=== PATIENT | female | born 1980 | race African-American/Black ===

== ENCOUNTER 2016-10-15 10:37 | Emergency (ER) | payer OTHER ==
--- NOTE | ~2016-10-15 | CT2 ---
[facility] A Service of [facility] & [facility] RADIOLOGY TEXT RESULTS PATIENT: PREM HUDSON LOCATION: SED : 84 UNIT #: [id number] AGE: [address]: Anthony Gonzalez MD SEX: F ORDER DR: [id number] [address] [address] [id number] E MR#: [id number] Acc #: [id number] NAME: PREM HUDSON : 1980 SEX: F STUDY DATE/TIME: 10/15/2016 12:36 UNIT: SED ROOM: STUDY DESCRIPTION: CT Abd and Pelv W Cont Attending Physician: Anthony Gonzalez M.D. Ordering Physician: Anthony Gonzalez M.D. Primary Care Physician: José Barber M.D. MEDICAL IMAGING REPORT This report is preliminary unless electronic signature is present. EXAM CT abdomen and pelvis with contrast 10/15/2016 1236 hours HISTORY 36-year-old woman with complaint of nausea, vomiting, bloody diarrhea and lightheadedness since yesterday. COMPARISON CT abdomen and pelvis 10/29/2015. TECHNIQUE Dynamic helical CT images were obtained from the lung bases with intravenous contrast only. Sagittal and coronal reconstructions were performed. Contrast was Isovue-370 100 mL IV. Total exam DLP 733 mGy-cm. This CT examination was performed with one or more of the following radiation dose reduction techniques: automatic exposure control, adjustment of mA and/or kV according to patient size, and iterative reconstruction. FINDINGS The lung bases are clear. There are no effusions. The distal esophagus is normal. The postcontrast images through the liver demonstrate 2 well-defined enhancing areas in the medial right lobe 1 seen on image 13 measuring 1.8 cm and the other just inferior and lateral to this in the posterior segment right lobe of the liver on image 17 measuring 1.9 cm. These are not apparent on the noncontrasted CT of 10/18/2005. Benign etiologies such as focal nodular hyperplasia, benign adenomas or atypical hemangiomas are favored over malignancy in a patient of this demographic with no prior malignancy. Consider confirmation of benign etiology with followup non-emergent liver MRI. The spleen, pancreas, gallbladder and bile ducts are normal. The adrenal glands are normal. The kidneys [facility]. [facility] A Service of [facility] RADIOLOGY TEXT RESULTS PATIENT: PREM HUDSON LOCATION: [facility] [place] : 84 UNIT #: [id number] AGE: [address]: Anthony Gonzalez MD SEX: F ORDER DR: enhance normally. There is no renal mass, stone or evidence of infection or obstruction. No ureteral calculi. The stomach is unopacified and somewhat contracted but appears normal. There is no small bowel distension or small bowel wall thickening. The terminal ileum is normal. The appendix is normal. The colon is nondistended. There is moderate stool in the right colon, transverse colon. There is suggested wall thickening in the mid to distal descending colon contiguously with a decompressed rectosigmoid colon. This segment of involvement is rather long, which would favor an infectious or inflammatory colitis over malignancy. CT pelvis is negative. IMPRESSION. 1. There is a fairly long segment of circumferential bowel wall thickening in the descending colon extending from the proximal to mid descending colon to the junction with the sigmoid colon. The rectosigmoid colon is decompressed. The findings favor the presence of infectious or inflammatory colitis. Malignancy is felt unlikely given the length of segmental involvement. 2. There are 2 well-defined enhancing nodules in the right lobe of the liver measuring 1.8 and 1.9 cm. These are not apparent on the noncontrasted CT of 10/29/2015. Benign etiology such as focal nodular hyperplasia, adenomas or atypical hemangioma is favored. If there are no prior postcontrast CTs available at an outside institution to confirm stability, I would suggest a followup non-emergent liver MRI to confirm the benign nature of these nodules as suspected. 3. Phleboliths in the pelvis. No renal or ureteral calculi. STAT * RESULT Dictated by... Nguyen Leahy M.D. THIS IS AN ELECTRONICALLY VERIFIED REPORT Nguyen Leahy M.D. at 10/15/2016 4:01 PM WALTER/safia TD: 10/15/2016 13:04 JOB #: [id number] MEDICAL IMAGING REPORT Page 1 of 1
[~2016-10-15 10:37] MED LIST: ALBUTEROL17 GM; ALBUTEROL17 GM INH; ALPRAZOLAM PO; ATARAX PO; AUGMENTIN875 MG PO; BACLOFEN10 MG PO; BACTRIM DS TABL1 TA1 PO; BACTRIM DS TABL1 TA2 PO; BACTRIM DS TABL1 TAB PO; BENADRYL25 M1 PO; CHLORASEPTIC177 ML MT; DICLOFENAC PO; DIFLUCAN PO; DOXYCYCLINE PO; FAMOTIDINE PO; FIORICET 50-301 EACH PO; FIORICET PO; FLEXERIL PO; FLEXERIL10 M1 PO; FLEXERIL10 MG PO; IBUPROFEN PO; IBUPROFEN600 MG PO; IBUPROFEN800 MG PO; IMITREX PO; LORTAB 10-5001 EACH PO; LORTAB 10/500 T1 TAB PO; LORTAB 7.5-5001 TAB PO; MEDROL DOSEPAK4 MG PO; MEDROL PO; MEDROL4 MG/DOSE- PO; MUCINEX1200 MG/BO PO; NAPROSYN-EC500 M1 PO; NAPROSYN500 MG PO; NO MEDICATIONS; PEPCID AC20 M2 PO; PHENERGAN PO; PHENERGAN25 MG PO; PREDNISONE PO; PROVERA PO; SYMBICORT; TESSALON200 MG PO; TOPAMAX PO; TRAMADOL HCL50 M1; TYLENOL #3 PO; ULTRAM PO; VICODIN 5/1 TAB 5/50 PO; VICODIN 5/500 T1 TAB PO; VOLTAREN75 MG PO
[2016-10-15] MEDS ORDERED: ASPIRIN EC81 M1 PO (10:49)
[2016-10-15 11:31] LABS: URINE SOURCE CLEAN CATCH
[2016-10-15 11:33] LABS: BASOPHIL% 0.4 % (0-2.5); EOSINOPHIL# 0.1 X10e3 (0-0.7); HEMATOCRIT 39.8 % (35.0-45.0); HEMOGLOBIN 13.6 gm/dL (12.0-16.0); LYMPHOCYTE# 1.2 X10e3 (1.0-3.5); LYMPHOCYTE% 18.2 % (17.0-45.0); MEAN CELL VOLUME 95.2 FL (83-96); MEAN CORPUSCULAR HEMOGLOBIN 32.4 PG (28-34); MEAN CORPUSCULAR HGB CONC 34.1 g/dL (30-36); MEAN PLATELET VOLUME 8.5 FL (6.5-11.5); MONOCYTE# 0.4 X10e3 (0-1.0); NEUTROPHIL# 4.7 X10e3 (1.5-7.1); NEUTROPHIL% 74.4 % (40-75); PLATELET COUNT 253 X10e3 (140-420); RED BLOOD COUNT 4.18 X10e (3.90-5.30); RED CELL DISTRIBUTION WIDTH 12.2 % (11.0-15.5); WHITE BLOOD COUNT 6.4 X10e3 (4.0-10.5)
[2016-10-15 11:34] LABS: URINE APPEARANCE CLEAR; URINE BILIRUBIN NEG (NEG); URINE BLOOD TRACE-INTACT (NEG); URINE COLOR YELLOW; URINE GLUCOSE NEG (NORM); URINE KETONE NEG (NEG); URINE LEUKOCYTE ESTERASE TRACE (NEG); URINE NITRATE NEG (NEG); URINE PH 5.5 (5-8); URINE PROTEIN NEG (NEG)
[2016-10-15 11:35] LABS: MICRO INDICATED? YES
[2016-10-15 11:35] LABS: DIFF IND NO
[2016-10-15 11:39] LABS: CULTURE INDICATED? NO; URINE BACTERIA NEG (NEG); URINE WBC 0-2 /[HPF] (0-5)
[2016-10-15 11:43] LABS: URINE MUCUS PRESENT; URINE SQUAMOUS EPITHELIAL CELL MODERATE /[HPF]; URINE TRICHOMONAS PRESENT
[2016-10-15 11:45] LABS: ALBUMIN SERUM 4.2 g/dL (3.5-5.0); BILIRUBIN, DIRECT 0.3 mg/dL (0.0-0.2); BILIRUBIN,INDIRECT 1.3 mg/dL (0.0-0.9); BILIRUBIN,TOTAL 1.6 mg/dL (0.2-2.0); BUN/CREATININE RATIO 13.33; CALCIUM SERUM 8.8 mg/dL (8.4-10.2); CREATININE SERUM 0.9 mg/dL (0.6-1.4); GLOM FILT RATE Estimated 96.8 mL/min (>60); POTASSIUM 3.6 mmol/L (3.5-5.1); PROTEIN TOTAL SERUM 7.8 g/dL (6.0-8.3)
== END 2016-10-15 14:00 | disposition home or self-care (01) ==
LOC: SED 10:37
PROVIDERS: Emergency Medicine
DX: A09 Infectious gastroenteritis and colitis, unspecified (principal); K76.9 Liver disease, unspecified; A59.01 Trichomonal vulvovaginitis; F41.9 Anxiety disorder, unspecified; J45.909 Unspecified asthma, uncomplicated; Z86.73 Personal history of transient ischemic attack (TIA), and cerebral infarction without residual deficits; F17.200 Nicotine dependence, unspecified, uncomplicated; Z91.040 Latex allergy status; Z79.899 Other long term (current) drug therapy; Z79.82 Long term (current) use of aspirin
CPT/HCPCS: 36415; 74177; 80048; 80076; 81003; 82270; 83690; 85025; 96361; 96374; 99284; J2405; Q9967